=== PATIENT | male | born 1955 | race Two or more races ===

== ENCOUNTER 2018-03-20 17:22 | Inpatient (IN) | payer OTHER ==
[~2018-03-20] VITALS: Ht 172.7 cm; Wt 83.0 kg
[~2018-03-20 17:22] MED LIST: DILANTIN100 MG
[2018-03-27] MEDS ORDERED: PERCOCET 5-3251 EACH PO (12:15)
[2018-03-27] MEDS ORDERED: CIPRO500 MG PO (12:15)
[2018-03-27] MEDS ORDERED: FLAGYL500MG PO (12:15)
[2018-03-27] MEDS ORDERED: Intestinex CAP PO (12:15)
[2018-03-27] MEDS ORDERED: PROTONIX40 MG PO (12:15)
== END 2018-03-27 14:25 | disposition home or self-care (01) | DRG 417 ==
LOC: ER 17:22 → SEC-K 03-21 08:08 → SURH 03-21 08:08 → O/R 03-21 11:42 → SURH 03-21 12:38
PROVIDERS: Surgery
PROC: 0WQF4ZZ Repair Abdominal Wall, Percutaneous Endoscopic Approach (ICD-10-PCS; 2018-03-21)
PROC: 0D9W40Z Drainage of Peritoneum with Drainage Device, Percutaneous Endoscopic Approach (ICD-10-PCS; 2018-03-21)
PROC: BW21ZZZ Computerized Tomography (CT Scan) of Abdomen and Pelvis (ICD-10-PCS; 2018-03-21)
PROC: 0FT44ZZ Resection of Gallbladder, Percutaneous Endoscopic Approach (ICD-10-PCS; principal; 2018-03-21 09:15)
DX: K80.00 Calculus of gallbladder with acute cholecystitis without obstruction (principal); K65.3 Choleperitonitis; K82.2 Perforation of gallbladder; A41.9 Sepsis, unspecified organism; G40.89 Other seizures; K42.9 Umbilical hernia without obstruction or gangrene; K29.70 Gastritis, unspecified, without bleeding; B34.9 Viral infection, unspecified

== ENCOUNTER → 2018-04-21 | Outpatient (CLI) | payer OTHER ==
[~2018-04-21] MED LIST changes: +CIPRO500 MG PO; +FLAGYL500MG PO; +Intestinex CAP PO; +PERCOCET 5-3251 EACH PO; +PROTONIX40 MG PO
== END | disposition home or self-care (01) ==
LOC: NUCLEAR 09:30
DX: K80.10 Calculus of gallbladder with chronic cholecystitis without obstruction (principal)
CPT/HCPCS: 78227; J2805; A9537